=== PATIENT | female | born 1975 | race Hispanic/Latino ===

== ENCOUNTER 2023-01-04 08:46 | Emergency (ER) | payer MEDICARE ==
[~2023-01-04] VITALS: Ht 144.8 cm; Wt 45.4 kg
[2023-01-04 09:30] LABS: BASOPHILS # (AUTO) 0.05 K/uL (0.00-0.20); BASOPHILS % (AUTO) 0.4 % (0.0-5.0); EOSINOPHILS # (AUTO) 0.03 K/uL (0.00-0.70); EOSINOPHILS % (AUTO) 0.3 % (0.0-8.0); IMMATURE GRANULOCYTE ABSOLUTE 0.03 K/uL (0-1); LYMPHOCYTES # (AUTO) 1.3 K/uL (1.0-4.8); MEAN CORPUSCULAR HEMOGLOBIN 33.1 pg (27.0-33.0); MEAN CORPUSCULAR VOLUME 97.3 fL (79-99); MONOCYTES # (AUTO) 0.7 K/uL (0.1-1.0); MONOCYTES % (AUTO) 5.6 % (3.0-13.0); NEUTROPHILS # (AUTO) 9.7 K/uL (1.8-7.7); NEUTROPHILS % (AUTO) 82.4 % (40.0-77.0); PLATELET COUNT (AUTO) 223 K/uL (130-400); RED BLOOD CELL COUNT(AUTO) 4.11 MIL/uL (4.00-5.50); RED CELL DISTRIBUTION WIDTH 14.6 % (11.0-15.5); WHITE BLOOD COUNT (AUTO) 11.7 K/uL (4.8-10.8)
[2023-01-04 09:42] LABS: POTASSIUM 4.2 mmol/L (3.5-5.1)
[2023-01-04 09:47] LABS: ALBUMIN 3.6 g/dL (3.5-5.0); BILIRUBIN,TOTAL 0.2 mg/dL (0.2-1.0); TOTAL PROTEIN, SERUM 7.8 g/dL (6.0-8.3)
[2023-01-04 09:57] LABS: APPEARANCE,URINE CLEAR (CLEAR); BILIRUBIN,URINE NEGATIVE (NEGATIVE); COLOR,URINE LIGHT-YELLOW (YELLOW); GLUCOSE, URINE (UA) NEGATIVE (NEGATIVE); KETONES,URINE NEGATIVE (NEGATIVE); LEUKOCYTE ESTERASE ,URINE 75 Leu/uL (NEGATIVE); NITRATE,URINE NEGATIVE (NEGATIVE); OCCULT BLOOD,URINE NEGATIVE (NEGATIVE); PH,URINE 5.5 (5.0-8.0); PROTEIN,URINE NEGATIVE (NEGATIVE); UROBILINOGEN,URINE 0.2 mg/dL (0.2-1.0)
[2023-01-04 09:59] LABS: HCG,QUALITATIVE URINE NEGATIVE (NEGATIVE)
[2023-01-04 10:01] LABS: ADD UA MICROSCOPIC YES
[2023-01-04 10:02] LABS: RBC,URINE 0-1 /HPF (0-1); SQUAMOUS EPITHELIAL CELL,UR RARE /HPF (0-2)
[2023-01-04] MEDS ORDERED: IOHEXOL-350 75 ML VIAL IV ONE (13:17)
[2023-01-04] MEDS ORDERED: LACT10SO5 PO (14:10)
[2023-01-04] MEDS ORDERED: CEPH500B PO (14:10)
[2023-01-04 14:34] VITALS: BP 136/78; PULSE 84; RESP 18; O2SAT 98
== END 2023-01-04 14:36 | disposition home or self-care (01) ==
LOC: EDH 08:46
DX: N39.0 Urinary tract infection, site not specified (principal); K59.00 Constipation, unspecified; Q90.9 Down syndrome, unspecified
CPT/HCPCS: 99285; 74178; 82550; 84484; 80053; 83690; 85025; 87088; 81001; 81025; 36415; Q9967